=== PATIENT | male | born 1960 | race Caucasian/White ===

== ENCOUNTER 2016-12-30 02:54 | Emergency (ER) | payer MEDICARE ==
[~2016-12-30] VITALS: Ht 167.6 cm; Wt 105.9 kg
[2016-12-30] MEDS ORDERED: VITAMINS (03:03)
[2016-12-30] MEDS ORDERED: ATOR40TA78 PO (03:03)
[2016-12-30] MEDS ORDERED: LISI-167 PO (03:03)
[2016-12-30] MEDS ORDERED: METF10002 PO (03:03)
[2016-12-30] MEDS ORDERED: ASPI-515 PO (03:03)
[2016-12-30] MEDS ORDERED: OXYcodone/APAP 5/325MG TABLET ONE (04:18)
[2016-12-30] MEDS ORDERED: OXYcodone/APAP 5/325MG TABLET PO ONE (04:30)
[2016-12-30] MEDS ORDERED: ONDANSETRON ODT 4 MG ONE (04:32)
[2016-12-30 04:36] VITALS: BP 136/78
[2016-12-30] MEDS ORDERED: ONDANSETRON ODT 4 MG PO ONE (05:00)
== END 2016-12-30 04:38 | disposition home or self-care (01) ==
LOC: ED 04:29
DX: K08.89 Other specified disorders of teeth and supporting structures (principal); E11.9 Type 2 diabetes mellitus without complications; I10 Essential (primary) hypertension; E78.5 Hyperlipidemia, unspecified
CPT/HCPCS: 99283; Q0162

== ENCOUNTER 2017-05-04 00:45 | Emergency (ER) | payer MEDICARE ==
[~2017-05-04] VITALS: Ht 167.6 cm; Wt 102.8 kg
[~2017-05-04 00:45] MED LIST: ASPI-515 PO; ATOR40TA78 PO; LISI-167 PO; METF10002 PO; VITAMINS
[2017-05-04 03:49] LABS: BLOOD UREA NITROGEN 28 mg/dL (7-18)
[2017-05-04 03:55] LABS: IS PT STATUS REG ER OR PRE ER? YES
[2017-05-04 04:46] VITALS: BP 147/77
== END 2017-05-04 04:47 | disposition home or self-care (01) ==
LOC: ED 03:30
DX: J02.8 Acute pharyngitis due to other specified organisms (principal); E11.9 Type 2 diabetes mellitus without complications; E78.5 Hyperlipidemia, unspecified; I10 Essential (primary) hypertension; I25.10 Atherosclerotic heart disease of native coronary artery without angina pectoris; Z95.5 Presence of coronary angioplasty implant and graft
CPT/HCPCS: 36415; 71020; 80048; 82040; 84484; 85025; 87081; 87880; 93005; 99285

== ENCOUNTER → 2018-02-14 | Outpatient (CLI) | payer MEDICARE | END | disposition home or self-care (01) | LOC: CVU 14:44 | PROVIDERS: ATTEND Internal Medicine Cardiovascular Disease | DX: I25.10 Atherosclerotic heart disease of native coronary artery without angina pectoris (principal); I10 Essential (primary) hypertension; E78.5 Hyperlipidemia, unspecified; E11.9 Type 2 diabetes mellitus without complications; Z95.5 Presence of coronary angioplasty implant and graft | CPT/HCPCS: 93306 ==

== ENCOUNTER 2019-03-31 19:14 | Emergency (ER) | payer MEDICARE, OTHER ==
[~2019-03-31] VITALS: Ht 167.6 cm; Wt 108.3 kg
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
--- NOTE | 2019-03-31 20:26 | NUR ---
PT TO XRAY.
[2019-03-31] MEDS ORDERED: L.E.T SOLUTION TP ONE ×2 (20:29→20:30)
[2019-03-31] MEDS ORDERED: LIDOCAINE-MPF 1%, 5ML ONE (20:29)
[2019-03-31] MEDS ORDERED: LIDOCAINE 1%, 2ML INFIL ONE (20:30)
--- NOTE | 2019-03-31 20:40 | NUR ---
PT BACK FROM XRAY. LET GIVEN AT [id number]. PA NOTIFIED.
[2019-03-31 21:19] VITALS: BP 121/71
--- NOTE | 2019-03-31 21:19 | NUR ---
PA AT BEDSIDE FOR I AND D. PT TOLERATED PROCEDURE WELL.
--- NOTE | 2019-03-31 21:38 | NUR ---
Patient/Caregiver given discharge instructions and they have confirmed that they understand the instructions. Patient ambulatory with steady gait.
== END 2019-03-31 21:39 | disposition home or self-care (01) ==
LOC: ED 21:10
DX: S76.012A Strain of muscle, fascia and tendon of left hip, initial encounter (principal); H60.02 Abscess of left external ear; X58.XXXA Exposure to other specified factors, initial encounter; Y93.89 Activity, other specified; Y92.89 Other specified places as the place of occurrence of the external cause; Y99.8 Other external cause status; I11.9 Hypertensive heart disease without heart failure; E78.5 Hyperlipidemia, unspecified; G89.29 Other chronic pain; I25.10 Atherosclerotic heart disease of native coronary artery without angina pectoris; E11.9 Type 2 diabetes mellitus without complications
CPT/HCPCS: 69000; 73502; 99284; J3490